=== PATIENT | male | born 1985 | race Caucasian/White ===

== ENCOUNTER 2020-03-04 01:36 | Emergency (ER) | payer SELFPAY ==
[~2020-03-04] VITALS: Ht 177.8 cm; Wt 126.6 kg
[2020-03-04 01:40] VITALS: BP 146/82
--- NOTE | 2020-03-04 01:40 | NUR ---
PT TAKEN TO BED 4 VIA GURNEY. TRANSFERED TO BED WITH ASSISTANCE FROM [facility]. [place] [employer] AT BEDSIDE.
--- NOTE | 2020-03-04 01:40 | NUR ---
PATIENT BIBA AND [place] [employer]. PT PRESENTS TO ER TO BE MEDICALLY CLEARED FOR BOOKING. PT AAO X4. RESPIRATIONS ARE EVEN AND UNLABORED. O2SAT@ 96% RA. PT WAS TASERED WHILE RESISTING ARREST. PT NOTED WITH TWO PRONG, ONE IN L NIPPLE AND ANOTHER NOTED APPORXIMATELY 2 IN BELOW L NIPPLE. BLEEDING NOTED IN L NIPPLE BUT CONTROLLED. PT DENIES PAIN AT THIS TIME. PT ON CARIDAC MONTIOR. PT BED LOCKED AND IN LOWEST POSITON. [place] [employer] AT BEDSIDE.
--- NOTE | 2020-03-04 01:41 | NUR ---
PT DENIES MEDHX AND ALLERGIES.
--- NOTE | 2020-03-04 02:06 | NUR ---
[facility] [facility] AT PT BEDSIDE.
--- NOTE | 2020-03-04 02:19 | NUR ---
PT RESTING IN BED TALKING TO [place] [employer]. PT AAO X4. RESPIRATIONS ARE EVEN AND UNLABORED. PT DENIES PAIN AT THIS TIME. 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 PT BED LOCKED AND IN LOWEST POSITION.
--- NOTE | 2020-03-04 02:21 | NUR ---
[employer] AT BEDSIDE.
[2020-03-04 03:20] VITALS: BP 119/43
--- NOTE | 2020-03-04 03:20 | NUR ---
PATIENT EXAMINED BY DR. SCHMIDT. PATIENT MEDICALLY CLEARED AND RELEASED IN CUSTODY OF [place] [employer] IN STABLE CONDITION. ORIGINAL PRE-BOOK FORM GIVEN TO OFFICER KIYA #[id number].
--- NOTE | 2020-03-04 03:20 | NUR ---
Patient discharged with v/s stable. Written and verbal after care instructions given and explained. Patient verbalized understanding. All questions addressed prior to discharge. Advised to follow up with PMD. Pt ambulated with steady gait and handcuffed by [place] . In custody with [place] [employer].
== END 2020-03-04 03:20 ==
LOC: MED 01:36
DX: S21.132A Puncture wound without foreign body of left front wall of thorax without penetration into thoracic cavity, initial encounter (principal); S27.898A Other injury of other specified intrathoracic organs, initial encounter; Z02.89 Encounter for other administrative examinations; X58.XXXA Exposure to other specified factors, initial encounter; Y93.89 Activity, other specified; Y92.89 Other specified places as the place of occurrence of the external cause; Y99.8 Other external cause status
CPT/HCPCS: 99283

== ENCOUNTER 2023-06-07 00:38 | Inpatient (IN) | payer MEDICAID, OTHER ==
[~2023-06-07] VITALS: Ht 177.8 cm; Wt 120.2 kg
[2023-06-07] VITALS (7 sets, daily range): BP systolic 152–230; BP diastolic 94–136; PULSE 80–105; RESP 19–20; TEMP 96.5–98; O2SAT 95–100
[2023-06-07 01:18] LABS: BASOPHILS # (AUTO) 0.2 K/uL (0.00-0.22); BASOPHILS % (AUTO) 1.1 % (0.0-2.0); EOSINOPHILS # (AUTO) 0.5 K/uL (0-0.4); EOSINOPHILS % (AUTO) 3.6 % (0.0-4.0); HEMATOCRIT 39.8 % (36-52); LYMPHOCYTES # (AUTO) 2.9 K/uL (2.0-11.5); LYMPHOCYTES % (AUTO) 21.2 % (20.5-51.1); MEAN CORPUSCULAR HEMOGLOBIN 27 pg (27-31); MEAN CORPUSCULAR HGB CONC 33 g/dL (33-37); MEAN CORPUSCULAR VOLUME 83.9 fL (80-94); MONOCYTES # (AUTO) 1.2 K/uL (0.8-1.0); MONOCYTES % (AUTO) 8.9 % (1.7-9.3); NEUTROPHILS # (AUTO) 8.9 K/uL (1.8-7.7); NEUTROPHILS % (AUTO) 65.2 % (42.2-75.2); PLATELET COUNT (AUTO) 357 K/uL (140-450); RED BLOOD CELL COUNT(AUTO) 4.75 MIL/uL (4.20-6.10); RED CELL DISTRIBUTION WIDTH 14.6 % (11.6-13.7); WHITE BLOOD COUNT (AUTO) 13.6 K/uL (4.8-10.8)
[2023-06-07 01:28] LABS: CHLORIDE 102 mmol/L (98-107); SODIUM SERUM 140 mmol/L (136-145)
[2023-06-07] MEDS ORDERED: KETOROLAC 15 MG/ML VIAL IVP ONE (01:30)
[2023-06-07] MEDS ORDERED: HYDROmorphone PFS 2 MG/ML SYR IVP ONE (01:30)
[2023-06-07 01:33] LABS: INR 0.93 (0.8-1.2); PARTIAL THROMBOPLASTIN TIME 35.4 secs (22-35.6); PROTHROMBIN TIME 9.8 secs (10.8-13.4)
[2023-06-07 01:40] LABS: ALANINE AMINOTRANSFERASE 57 U/L (12-78); ALBUMIN 3.8 g/dL (3.4-5.0); ALKALINE PHOSPHATASE 97 U/L (50-136); ANION GAP 12.5 (8-16); ASPARTATE AMINOTRANSFERASE 27 U/L (15-37); CALCIUM 8.7 mg/dL (8.5-10.1); CARBON DIOXIDE 27.5 mmol/L (21-32); CREATININE 1.3 mg/dL (0.6-1.3); GFR ARICAN-AMERICAN 80 mL/min (>90); GFR NON ARICAN-AMERICAN 66 mL/min (>90); GLUCOSE 110 mg/dL (74-106); TOTAL BILIRUBIN 0.6 mg/dL (0.0-1.0); TOTAL PROTEIN, SERUM 7.8 g/dL (6.4-8.2); UREA NITROGEN, BLOOD 10 mg/dL (7-18)
[2023-06-07] MEDS ORDERED: LABETALOL 20 MG/4 ML VIAL IVP ONE (02:35)
[2023-06-07] MEDS ORDERED: POTASSIUM CHLORIDE 10 MEQ TABER PO ONE (03:00)
[2023-06-07] MEDS ORDERED: NACL 0.9% 1,000 ML IV ONE (03:30)
[2023-06-07] MEDS ORDERED: ONDANSETRON 4 MG/2 ML VIAL IVP PRN (05:15)
[2023-06-07] MEDS ORDERED: HYDROcodone/APAP 5/325 MG 1 TAB TAB PO PRN (05:15)
[2023-06-07] MEDS ORDERED: ACETAMINOPHEN 325 MG TAB PO PRN (05:15)
[2023-06-07] MEDS ORDERED: MORPHINE SULFATE 2 MG/ML SYR IVP PRN (05:15)
[2023-06-07] MEDS ORDERED: LORazepam 2 MG/ML VIAL IVP PRN (05:15)
[2023-06-07] MEDS: hydrALAZINE 20 MG/ML VIAL IVP PRN ×3 (06:09→21:08)
[2023-06-07] MEDS: NACL 0.9% 1,000 ML IV SCH ×2 (06:13→18:22)
[2023-06-07] MEDS ORDERED: HYDR12.51 PO (09:57)
[2023-06-07] MEDS: NIFEdipine 90 MG TABER PO SCH (13:44)
[2023-06-07] MEDS: LOSARTAN 50 MG TAB PO SCH (18:21)
[2023-06-08] VITALS: BP 131/77; PULSE 103; PULSE 94; RESP 19; TEMP 97.1; O2SAT 100
[2023-06-08 04:00] VITALS: BP 144/91; PULSE 91; PULSE 94; RESP 19; TEMP 96.9; O2SAT 100
[2023-06-08 06:00] LABS: BASOPHILS # (AUTO) 0.3 K/uL (0.00-0.22); BASOPHILS % (AUTO) 2.3 % (0.0-2.0); EOSINOPHILS # (AUTO) 0.2 K/uL (0-0.4); HEMATOCRIT 38.6 % (36-52); HEMOGLOBIN 12.7 g/dL (12.0-18.0); LYMPHOCYTES # (AUTO) 2.2 K/uL (2.0-11.5); MEAN CORPUSCULAR HEMOGLOBIN 27 pg (27-31); MEAN CORPUSCULAR HGB CONC 33 g/dL (33-37); MEAN CORPUSCULAR VOLUME 83.1 fL (80-94); MONOCYTES % (AUTO) 8.4 % (1.7-9.3); NEUTROPHILS # (AUTO) 8.3 K/uL (1.8-7.7); NEUTROPHILS % (AUTO) 69.3 % (42.2-75.2); PLATELET COUNT (AUTO) 349 K/uL (140-450); RED BLOOD CELL COUNT(AUTO) 4.65 MIL/uL (4.20-6.10); RED CELL DISTRIBUTION WIDTH 14.8 % (11.6-13.7)
[2023-06-08 06:25] LABS: ALBUMIN 3.6 g/dL (3.4-5.0); ANION GAP 12.6 (8-16); CALCIUM 8.6 mg/dL (8.5-10.1); CARBON DIOXIDE 26.2 mmol/L (21-32); CREATININE 1.1 mg/dL (0.6-1.3); MAGNESIUM 1.8 mg/dL (1.8-2.4); TOTAL PROTEIN, SERUM 7.3 g/dL (6.4-8.2)
[2023-06-08 06:29] LABS: POTASSIUM 2.8 mmol/L (3.5-5.1)
[2023-06-08] MEDS ORDERED: POTASSIUM CHLORIDE 20% 40 MEQ/15 ML UDC GT SCH (07:07)
[2023-06-08] MEDS: NACL 0.9% 1,000 ML IV SCH ×2 (07:28→18:45)
[2023-06-08 08:00] VITALS: BP 159/87; PULSE 111; PULSE 99; RESP 20; TEMP 97.9; O2SAT 100
[2023-06-08] MEDS ORDERED: KCL 20 MEQ IN 100 mL PREMIX 200 ML IV SCH (08:00)
[2023-06-08] MEDS: NIFEdipine 90 MG TABER PO SCH (08:55)
[2023-06-08] MEDS: ECOTRIN 81 MG TABEC PO SCH (08:55)
[2023-06-08] MEDS: LOSARTAN 50 MG TAB PO SCH (08:55)
[2023-06-08 12:00] VITALS: BP 159/93; PULSE 96; RESP 20; TEMP 97.1; O2SAT 100
[2023-06-08 16:00] VITALS: BP 146/70; PULSE 96; PULSE 98; RESP 20; TEMP 97.1; O2SAT 100
[2023-06-08] MEDS: SPIRONOLACTONE 50 MG TAB PO SCH (18:15)
[2023-06-08] MEDS ORDERED: SPIR50TA PO (18:53)
[2023-06-08] MEDS ORDERED: LOSA-270 PO (18:53)
[2023-06-08] MEDS ORDERED: NIFE90TE63 PO ×2 (18:53→18:56)
[2023-06-08] MEDS ORDERED: ASPI-1856 PO (18:53)
[2023-06-08 20:00] VITALS: BP 162/97; PULSE 101; RESP 16; TEMP 97.5; O2SAT 100
[2023-06-08] MEDS: hydrALAZINE 20 MG/ML VIAL IVP PRN ×2 (21:17→22:52)
[2023-06-09 04:00] VITALS: BP 160/100; PULSE 109; RESP 18; TEMP 98.2; O2SAT 100
[2023-06-09] MEDS: hydrALAZINE 20 MG/ML VIAL IVP PRN (04:52)
[2023-06-09] MEDS: NACL 0.9% 1,000 ML IV SCH (07:15)
[2023-06-09 08:00] VITALS: BP 175/85; PULSE 110; PULSE 92; RESP 20; TEMP 97; O2SAT 100
[2023-06-09] MEDS: ECOTRIN 81 MG TABEC PO SCH (09:20)
[2023-06-09] MEDS: LOSARTAN 50 MG TAB PO SCH (09:21)
[2023-06-09] MEDS: NIFEdipine 90 MG TABER PO SCH (09:21)
[2023-06-09] MEDS: SPIRONOLACTONE 50 MG TAB PO SCH (09:21)
[2023-06-09 11:57] VITALS: BP 175/85; PULSE 110; RESP 20; TEMP 97
== END 2023-06-09 13:00 | disposition home or self-care (01) | DRG 199 ==
LOC: MED 00:38 → MTU 05:18 → OBSVTOIN 12:38
PROVIDERS: ADMIT Hospitalist; ATTEND Hospitalist
DX: I16.1 Hypertensive emergency (principal); I67.4 Hypertensive encephalopathy; I24.8 Other forms of acute ischemic heart disease; R65.10 Systemic inflammatory response syndrome (SIRS) of non-infectious origin without acute organ dysfunction; I10 Essential (primary) hypertension; N28.9 Disorder of kidney and ureter, unspecified; Z91.148 Patient's other noncompliance with medication regimen for other reason; Z71.51 Drug abuse counseling and surveillance of drug abuser
CPT/HCPCS: 36415; 70450; 71045; 80053; 83735; 84484; 85025; 85610; 85730; 87081; 93005; 96361; 96374; 96375; 99285; J0360; J1170; J1644; J1885; J3480; J3490; Q0092; Q9967

== ENCOUNTER 2024-03-10 22:02 | Emergency (ER) | payer SELFPAY ==
[~2024-03-10] VITALS: Ht 177.8 cm; Wt 120.2 kg
[~2024-03-10 22:02] MED LIST: ASPI-1856 PO; LOSA-270 PO; NIFE90TE63 PO; SPIR50TA PO
[2024-03-10 22:35] VITALS: BP 211/133; PULSE 93; RESP 18; TEMP 97.2; O2SAT 100
[2024-03-10 23:10] VITALS: O2SAT 98
[2024-03-10 23:48] LABS: BASOPHILS # (AUTO) 0.2 K/uL (0.00-0.22); BASOPHILS % (AUTO) 1.7 % (0.0-2.0); EOSINOPHILS # (AUTO) 0.4 K/uL (0-0.4); EOSINOPHILS % (AUTO) 4.5 % (0.0-4.0); HEMATOCRIT 38.7 % (36-52); HEMOGLOBIN 12.8 g/dL (12.0-18.0); LYMPHOCYTES # (AUTO) 2.8 K/uL (2.0-11.5); LYMPHOCYTES % (AUTO) 28.9 % (20.5-51.1); MEAN CORPUSCULAR HEMOGLOBIN 28 pg (27-31); MEAN CORPUSCULAR HGB CONC 33 g/dL (33-37); MEAN CORPUSCULAR VOLUME 83.6 fL (80-94); MONOCYTES # (AUTO) 0.9 K/uL (0.8-1.0); MONOCYTES % (AUTO) 9.2 % (1.7-9.3); NEUTROPHILS # (AUTO) 5.4 K/uL (1.8-7.7); NEUTROPHILS % (AUTO) 55.7 % (42.2-75.2); PLATELET COUNT (AUTO) 296 K/uL (140-450); RED BLOOD CELL COUNT(AUTO) 4.63 MIL/uL (4.20-6.10); RED CELL DISTRIBUTION WIDTH 15.8 % (11.6-13.7); WHITE BLOOD COUNT (AUTO) 9.8 K/uL (4.8-10.8)
[2024-03-10 23:59] LABS: ANION GAP 11.5 (8-16); CARBON DIOXIDE 27.7 mmol/L (21-32); CREATININE 1.3 mg/dL (0.6-1.3); POTASSIUM 3.2 mmol/L (3.5-5.1)
[2024-03-11] MEDS: KETOROLAC 30 MG/ML VIAL IVP ONE (00:07)
[2024-03-11] MEDS: MORPHINE SULFATE 4 MG/ML SYR IVP ONE (00:09)
[2024-03-11] MEDS: LABETALOL 20 MG/4 ML VIAL IVP ONE (00:12)
[2024-03-11 01:06] VITALS: O2SAT 97
[2024-03-11] MEDS ORDERED: hydrALAZINE 10 MG TAB ONE (03:57)
[2024-03-11] MEDS: HYDROcodone/APAP 5/325 MG 1 TAB TAB PO ONE (04:04)
[2024-03-11] MEDS: hydrALAZINE 25 MG TAB PO ONE (04:04)
[2024-03-11] MEDS: POTASSIUM CHLORIDE 20% 40 MEQ/15 ML UDC PO ONE (04:05)
[2024-03-11] MEDS: methocarbamoL 500 MG TAB PO STA (04:05)
[2024-03-11 06:10] VITALS: BP 161/102; PULSE 82; RESP 15; O2SAT 99
== END 2024-03-11 07:00 | disposition home or self-care (01) ==
LOC: MED 22:02
DX: S80.01XA Contusion of right knee, initial encounter (principal); I10 Essential (primary) hypertension; F12.90 Cannabis use, unspecified, uncomplicated; F17.200 Nicotine dependence, unspecified, uncomplicated; Z71.6 Tobacco abuse counseling; Z79.899 Other long term (current) drug therapy; X58.XXXA Exposure to other specified factors, initial encounter; Y93.89 Activity, other specified; Y92.89 Other specified places as the place of occurrence of the external cause; Y99.8 Other external cause status
CPT/HCPCS: 29505; 36415; 71275; 73562; 74174; 80048; 84484; 85025; 93005; 96374; 96375; 99285; J1885; J2270; J3490; Q9967